=== PATIENT | female | born 1945 | race Two or more races ===

== ENCOUNTER 2018-12-16 09:52 | Inpatient (IN) | payer BC, MEDICARE ==
[~2018-12-16] VITALS: Ht 152.4 cm; Wt 79.0 kg
[2018-12-16] MEDS ORDERED: CLONIDINE 0.1MG TABLET PO PRN ×2 (10:45→11:45)
[2018-12-16 10:51] LABS: BASOPHILS % 0.4 % (0.0-2.0); EOSINOPHILS % 1.5 % (0.0-5.0); HEMATOCRIT. 44.7 % (36.0-48.0); HEMOGLOBIN. 14.9 g/dL (12.0-16.0); LYMPHOCYTES % 30.9 % (20.0-50.0); MEAN CORPUSCULAR HEMOGLOBIN 30.9 pg (28.0-32.0); MEAN CORPUSCULAR VOLUME 92.4 fL (81.0-99.0); MEAN PLATELET VOLUME 7.3 fl (7.4-10.4); MONOCYTES % 8.4 % (2.0-8.0); NEUTROPHILS % 58.8 % (40.0-76.0); PLATELET 226 x1000/uL (130-400); RED BLOOD CELL COUNT 4.83 mill/uL (4.2-5.4); RED CELL DISTRIBUTION WIDTH 13.5 % (11.6-14.6)
[2018-12-16 10:57] LABS: PROTHROMBIN TIME 10.6 sec (9.6-11.0)
[2018-12-16] MEDS ORDERED: ASPIRIN 81MG TABLET PO ONE (11:00)
[2018-12-16] MEDS ORDERED: NITROGLYCERIN 0.4MG TABLET SL SL PRN ×2 (11:00→11:45)
[2018-12-16 11:03] LABS: CHLORIDE 103 mEq/L (98-107)
[2018-12-16] MEDS ORDERED: MAGNESIUM/ALUMINUM HYDROXIDE/SIMETHICONE 30ML UDC PO PRN (11:45)
[2018-12-16] MEDS ORDERED: DOCUSATE SODIUM 100MG CAPSULE PO PRN (11:45)
[2018-12-16] MEDS ORDERED: MORPHINE SULFATE 2 MG/ML CPJ (NOT FOR IM USE) IV PRN (11:45)
[2018-12-16] MEDS ORDERED: GUAIFENESIN 200MG/10ML SUGAR FREE UDC PO PRN (11:45)
[2018-12-16] MEDS ORDERED: ACETAMINOPHEN 325MG TABLET PO PRN (11:45)
[2018-12-16 15:37] VITALS: BP 141/59
[2018-12-16 15:58] VITALS: BP 141/59
[2018-12-16] MEDS ORDERED: LOSA100T32 PO (16:30)
[2018-12-16] MEDS ORDERED: LEVO50TA PO (16:30)
[2018-12-16] MEDS ORDERED: AMLO10TA80 PO (16:30)
[2018-12-16] MEDS ORDERED: ATOR20TA65 PO (16:30)
[2018-12-16] MEDS ORDERED: ATEN50TA PO (16:30)
[2018-12-16] MEDS ORDERED: VALS160T28 PO (16:34)
[2018-12-16] MEDS ORDERED: NON FORMULARY PATIENT HOME MED XX SCH (17:00)
[2018-12-16] MEDS: LOSARTAN POTASSIUM 100 MG TABLET PO SCH (17:05)
[2018-12-16] MEDS: AMLODIPINE 10MG TABLET PO SCH (17:05)
[2018-12-16] MEDS: ASPIRIN 325MG EC TABLET PO SCH (17:05)
[2018-12-16] MEDS: ENOXAPARIN 40MG/0.4ML SYR SUBCUT SCH (17:06)
[2018-12-16 21:28] VITALS: BP 128/72
[2018-12-16] MEDS: ATORVASTATIN CALCIUM 20MG TABLET PO SCH (22:30)
[2018-12-16] MEDS: ATENOLOL 50 MG TABLET PO SCH (22:59)
[2018-12-16] MEDS: ZOLPIDEM TARTRATE 5MG TABLET PO PRN (23:00)
[2018-12-17] VITALS: BP 146/85
[2018-12-17 04:00] VITALS: BP 131/77
[2018-12-17] MEDS: LEVOTHYROXINE SODIUM 50MCG TABLET PO SCH (06:17)
[2018-12-17 06:34] LABS: CHLORIDE 105 mEq/L (98-107)
[2018-12-17 06:37] LABS: BASOPHILS % 0.5 % (0.0-2.0); EOSINOPHILS % 1.8 % (0.0-5.0); HEMATOCRIT. 40.8 % (36.0-48.0); HEMOGLOBIN. 13.8 g/dL (12.0-16.0); LYMPHOCYTES % 38.7 % (20.0-50.0); MEAN CORPUSCULAR HEMOGLOBIN 30.9 pg (28.0-32.0); MEAN CORPUSCULAR VOLUME 91.6 fL (81.0-99.0); MEAN PLATELET VOLUME 7.4 fl (7.4-10.4); MONOCYTES % 10.8 % (2.0-8.0); NEUTROPHILS % 48.2 % (40.0-76.0); PLATELET 221 x1000/uL (130-400); RED BLOOD CELL COUNT 4.45 mill/uL (4.2-5.4); RED CELL DISTRIBUTION WIDTH 13.3 % (11.6-14.6)
[2018-12-17 06:40] LABS: LDL CHOLESTEROL 124 mg/dL (5-100)
[2018-12-17 06:42] LABS: HDL CHOLESTEROL 33 mg/dL (40-59)
[2018-12-17 06:46] LABS: CREATINE KINASE 52 IU/L (26-192)
[2018-12-17 06:48] LABS: CREATINE KINASE MB FRACTION < 1.0 ng/mL (0.5-3.6)
[2018-12-17 08:00] VITALS: BP 117/74
[2018-12-17] MEDS: ASPIRIN 325MG EC TABLET PO SCH (08:51)
[2018-12-17] MEDS: AMLODIPINE 10MG TABLET PO SCH (08:52)
[2018-12-17] MEDS: LOSARTAN POTASSIUM 100 MG TABLET PO SCH (08:52)
[2018-12-17] MEDS ORDERED: AMLODIPINE 10MG TABLET PO SCH (09:00)
[2018-12-17 12:00] VITALS: BP 120/75
[2018-12-17] MEDS: ENOXAPARIN 40MG/0.4ML SYR SUBCUT SCH (15:57)
[2018-12-17 16:00] VITALS: BP 114/69
[2018-12-17 20:00] VITALS: BP 126/79
[2018-12-17] MEDS: ATENOLOL 50 MG TABLET PO SCH (20:51)
[2018-12-17] MEDS: ATORVASTATIN CALCIUM 20MG TABLET PO SCH (20:51)
[2018-12-17] MEDS: ZOLPIDEM TARTRATE 5MG TABLET PO PRN (21:26)
[2018-12-18] VITALS (8 sets, daily range): BP systolic 108–142; BP diastolic 62–76
[2018-12-18] MEDS: LEVOTHYROXINE SODIUM 50MCG TABLET PO SCH (06:31)
[2018-12-18] MEDS: LOSARTAN POTASSIUM 100 MG TABLET PO SCH (08:11)
[2018-12-18] MEDS: AMLODIPINE 10MG TABLET PO SCH (08:11)
[2018-12-18] MEDS: ASPIRIN 325MG EC TABLET PO SCH (08:11)
[2018-12-18] MEDS: ENOXAPARIN 40MG/0.4ML SYR SUBCUT SCH (14:32)
[2018-12-18] MEDS: ATORVASTATIN CALCIUM 20MG TABLET PO SCH (20:45)
[2018-12-18] MEDS: ATENOLOL 50 MG TABLET PO SCH (20:46)
[2018-12-19] VITALS (39 sets, daily range): BP systolic 108–166; BP diastolic 35–109
[2018-12-19] MEDS: LEVOTHYROXINE SODIUM 50MCG TABLET PO SCH (07:10)
[2018-12-19] MEDS: ASPIRIN 325MG EC TABLET PO SCH (08:22)
[2018-12-19] MEDS: LOSARTAN POTASSIUM 100 MG TABLET PO SCH (08:22)
[2018-12-19] MEDS: AMLODIPINE 10MG TABLET PO SCH (08:29)
[2018-12-19 08:55] LABS: BASOPHILS % 0.5 % (0.0-2.0); EOSINOPHILS % 1.9 % (0.0-5.0); HEMATOCRIT. 41.6 % (36.0-48.0); HEMOGLOBIN. 14.1 g/dL (12.0-16.0); LYMPHOCYTES % 27.9 % (20.0-50.0); MEAN CORPUSCULAR HEMOGLOBIN 31.2 pg (28.0-32.0); MEAN CORPUSCULAR VOLUME 91.8 fL (81.0-99.0); MEAN PLATELET VOLUME 7.5 fl (7.4-10.4); MONOCYTES % 9.4 % (2.0-8.0); NEUTROPHILS % 60.3 % (40.0-76.0); PLATELET 216 x1000/uL (130-400); RED BLOOD CELL COUNT 4.53 mill/uL (4.2-5.4); RED CELL DISTRIBUTION WIDTH 13.1 % (11.6-14.6)
[2018-12-19 09:13] LABS: CHLORIDE 104 mEq/L (98-107)
[2018-12-19] MEDS ORDERED: HEPARIN SODIUM 1,000 UNIT/1ML VIAL IV ONE (10:33)
[2018-12-19] MEDS ORDERED: NICARDIPINE 100MCG/ML 10ML VIAL (CATH LAB) IV ONE (10:33)
[2018-12-19] MEDS ORDERED: NITROGLYCERIN 50MCG/ML 10ML VIAL (CATH LAB) IV ONE (10:33)
[2018-12-19] MEDS ORDERED: IOHEXOL-300 100 ML BOTTLE ONE (12:47)
[2018-12-19] MEDS ORDERED: LIDOCAINE HCL 1% 20ML VIAL (Pyxis) INJ ONE (12:47)
[2018-12-19] MEDS ORDERED: IODIXANOL 320MG/ML 100 ML BOTTLE IV ONE ×2 (12:47→13:42)
[2018-12-19] MEDS ORDERED: FENTANYL CITRATE/PF 50MCG/ML 2ML VIAL ONE (12:57)
[2018-12-19] MEDS ORDERED: MIDAZOLAM HCL 2 MG/2 ML VIAL ONE ×2 (12:57→13:23)
[2018-12-19] MEDS ORDERED: CLOPIDOGREL 75MG TABLET ONE (13:42)
[2018-12-19] MEDS ORDERED: ASPIRIN 325MG EC TABLET PO ONE (13:59)
[2018-12-19] MEDS ORDERED: TICAGRELOR 90 MG TABLET PO ONE (14:08)
[2018-12-19] MEDS ORDERED: ACETAMINOPHEN 325MG TABLET PO PRN (14:15)
[2018-12-19] MEDS ORDERED: ATROPINE SULFATE 1MG/10ML SYR IV PRN (14:15)
[2018-12-19] MEDS ORDERED: ONDANSETRON HCL 4MG/2ML INJ IV PRN (14:15)
[2018-12-19] MEDS: SODIUM CHLORIDE 0.45% 1,000 ML IV SCH ×2 (15:00→23:52)
[2018-12-19] MEDS: ONDANSETRON HCL 4MG/2ML INJ IV PRN ×3 (17:07→23:52)
[2018-12-19] MEDS: NITROGLYCERIN OINT 1GM/INCH UDPKT TD SCH ×2 (18:19→23:52)
[2018-12-19] MEDS: ATENOLOL 50 MG TABLET PO SCH (21:42)
[2018-12-19] MEDS: ATORVASTATIN CALCIUM 20MG TABLET PO SCH (21:42)
[2018-12-19] MEDS: TICAGRELOR 90 MG TABLET PO SCH (22:40)
[2018-12-20] VITALS (37 sets, daily range): BP systolic 72–146; BP diastolic 29–94
[2018-12-20] MEDS: NITROGLYCERIN OINT 1GM/INCH UDPKT TD SCH (06:13)
[2018-12-20 07:41] LABS: BASOPHILS % 0.1 % (0.0-2.0); HEMATOCRIT. 37.3 % (36.0-48.0); HEMOGLOBIN. 12.8 g/dL (12.0-16.0); LYMPHOCYTES % 12.2 % (20.0-50.0); MEAN CORPUSCULAR HEMOGLOBIN 31.1 pg (28.0-32.0); MEAN CORPUSCULAR VOLUME 90.6 fL (81.0-99.0); MEAN PLATELET VOLUME 7.5 fl (7.4-10.4); NEUTROPHILS % 81.7 % (40.0-76.0); PLATELET 213 x1000/uL (130-400); RED BLOOD CELL COUNT 4.11 mill/uL (4.2-5.4); RED CELL DISTRIBUTION WIDTH 13.3 % (11.6-14.6)
[2018-12-20] MEDS: LEVOTHYROXINE SODIUM 50MCG TABLET PO SCH (08:09)
[2018-12-20 08:33] LABS: CHLORIDE 98 mEq/L (98-107)
[2018-12-20] MEDS ORDERED: ASPIRIN 325MG TABLET PO SCH (09:00)
[2018-12-20] MEDS: LOSARTAN POTASSIUM 100 MG TABLET PO SCH (09:19)
[2018-12-20] MEDS: TICAGRELOR 90 MG TABLET PO SCH (09:19)
[2018-12-20] MEDS: AMLODIPINE 10MG TABLET PO SCH (09:22)
[2018-12-20] MEDS ORDERED: TICA90TA MT (11:49)
[2018-12-20] MEDS ORDERED: ASPI-1158 MT (11:50)
[2018-12-21] MEDS ORDERED: ASPIRIN 81MG TABLET PO SCH (09:00)
== END 2018-12-20 12:00 | disposition home or self-care (01) | DRG 246 ==
LOC: ER 09:52 → 8WST 10:50 → EDBEDREQ 10:56 → EDBEDREQSVC 10:56 → EDBEDREQTM 10:56 → SUPCPDRO 11:16 → ENRESERV 14:06 → EDBEDREQSVC 14:38 → CANRESERV 14:38 → ENRESERV 14:38 → CVICU 12-19 14:00
PROVIDERS: ADMIT Hospitalist; ATTEND Hospitalist
PROC: 4A023N7 Measurement of Cardiac Sampling and Pressure, Left Heart, Percutaneous Approach (ICD-10-PCS; principal; 2018-12-19)
PROC: 027034Z Dilation of Coronary Artery, One Artery with Drug-eluting Intraluminal Device, Percutaneous Approach (ICD-10-PCS; 2018-12-19)
PROC: B211YZZ Fluoroscopy of Multiple Coronary Arteries using Other Contrast (ICD-10-PCS; 2018-12-19)
PROC: B215YZZ Fluoroscopy of Left Heart using Other Contrast (ICD-10-PCS; 2018-12-19)
PROC: B213YZZ Fluoroscopy of Multiple Coronary Artery Bypass Grafts using Other Contrast (ICD-10-PCS; 2018-12-19)
DX: T82.858A Stenosis of other vascular prosthetic devices, implants and grafts, initial encounter (principal); I50.33 Acute on chronic diastolic (congestive) heart failure; I25.110 Atherosclerotic heart disease of native coronary artery with unstable angina pectoris; E03.9 Hypothyroidism, unspecified; I10 Essential (primary) hypertension; E78.5 Hyperlipidemia, unspecified; E11.65 Type 2 diabetes mellitus with hyperglycemia; E66.9 Obesity, unspecified; E78.00 Pure hypercholesterolemia, unspecified; F41.9 Anxiety disorder, unspecified; Y83.2 Surgical operation with anastomosis, bypass or graft as the cause of abnormal reaction of the patient, or of later complication, without mention of misadventure at the time of the procedure; Y92.89 Other specified places as the place of occurrence of the external cause; Z79.02 Long term (current) use of antithrombotics/antiplatelets; Z79.82 Long term (current) use of aspirin; Z95.5 Presence of coronary angioplasty implant and graft; Z95.1 Presence of aortocoronary bypass graft; Z82.49 Family history of ischemic heart disease and other diseases of the circulatory system; Z79.899 Other long term (current) drug therapy; Z68.34 Body mass index [BMI] 34.0-34.9, adult
CPT/HCPCS: 36415; 71045; 80048; 80061; 82550; 82553; 83036; 83735; 83880; 84484; 85347; 86850; 86870; 86900; 92937; 93005; 93306; 93459; 93970; 99291; C1760; C1769; C1874; C1887; C1893; J1644; J1650; J2250; J2270; J2405; J3010; J3490; Q9967; J8499